=== PATIENT | female | born 1975 | race Caucasian/White ===

== ENCOUNTER 2017-08-09 09:42 | Emergency (ER) | payer OTHER ==
[~2017-08-09] VITALS: Ht 149.9 cm; Wt 75.0 kg
[2017-08-09 10:00] VITALS: Ht 149.9 cm; Wt 75.0 kg
[2017-08-09] MEDS ORDERED: BAYER CHEWABLE81 MG PO (10:01)
[2017-08-09] MEDS ORDERED: LIPITOR20 MG PO (10:01)
[2017-08-09] MEDS ORDERED: PROZAC20 MG PO (10:01)
[2017-08-09] MEDS ORDERED: NEURONTIN 300300 MG PO (11:13)
[2017-08-09] MEDS ORDERED: TORADOL10 MG PO (11:13)
[2017-08-09 18:46] VITALS: BP 134/74
== END 2017-08-09 13:00 | disposition home or self-care (01) ==
LOC: D.ER 09:42
DX: M54.16 Radiculopathy, lumbar region (principal); F17.200 Nicotine dependence, unspecified, uncomplicated